=== PATIENT | male | born 1960 | race Caucasian/White ===

== ENCOUNTER 2017-10-15 22:00 | Emergency (ER) | payer BC ==
[~2017-10-15] VITALS: Ht 188 cm; Wt 85.7 kg
[2017-10-15] MEDS ORDERED: LIPITOR10 MG PO (22:10)
[2017-10-15] MEDS ORDERED: PREDNISONE 20 M20 MG PO (23:12)
[2017-10-15] MEDS ORDERED: ZOFRAN ODT4 MG PO (23:12)
[2017-10-15] MEDS ORDERED: EPIPEN0.3 MG/0.1 IM (23:12)
== END 2017-10-16 00:15 | disposition home or self-care (01) ==
LOC: ER 22:00
DX: T78.1XXA Other adverse food reactions, not elsewhere classified, initial encounter (principal); X58.XXXA Exposure to other specified factors, initial encounter